=== PATIENT | female | born 1995 | race Hispanic/Latino ===

== ENCOUNTER 2024-04-16 23:11 | Emergency (ER) | payer OTHER ==
[~2024-04-16] VITALS: Ht 160 cm; Wt 74.8 kg
[2024-04-16 23:20] VITALS: PULSE 75; RESP 18; TEMP 98.6
[2024-04-17] MEDS ORDERED: KETOROLAC TROMETHAMINE 60 MG/2 ML VIAL ONE (00:09)
[2024-04-17] MEDS: ACETAMINOPHEN 325 MG TAB PO STA (01:20)
[2024-04-17] MEDS: LIDOCAINE HCL 1% LOCAL INJ 20 ML VIAL INJ STA (01:21)
[2024-04-17] MEDS: KETOROLAC TROMETHAMINE 60 MG/2 ML VIAL IM ONE (01:21)
[2024-04-17 03:45] VITALS: BP 119/65; PULSE 79; RESP 14; TEMP 98.8; O2SAT 98
== END 2024-04-17 01:59 | disposition home or self-care (01) ==
LOC: ER 23:15
DX: M25.511 Pain in right shoulder (principal); E11.9 Type 2 diabetes mellitus without complications
CPT/HCPCS: 36415; 73030; 82948; 99284; J1885